=== PATIENT | male | born 1970 | race Caucasian/White ===

== ENCOUNTER 2021-06-04 15:44 | Emergency (ER) | payer MEDICARE, MEDICAID ==
[~2021-06-04] VITALS: Ht 180.3 cm; Wt 87.2 kg
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
[2021-06-04 20:05] VITALS: BP 125/75
== END 2021-06-04 20:05 | disposition home or self-care (01) ==
LOC: ER 15:44
DX: F20.0 Paranoid schizophrenia (principal); F41.9 Anxiety disorder, unspecified
CPT/HCPCS: 99283